=== PATIENT | female | born 1990 | race African-American/Black ===

== ENCOUNTER → 2016-12-03 | Outpatient (REF) | payer OTHER ==
[~2016-12-03] MED LIST: IBUP-1114 PO; OXYC1TAB23 PO; PRENTAB9 PO
== END ==
LOC: M LAB REF 12:39
PROVIDERS: ATTEND Advanced Practice Midwife
DX: Z11.3 Encounter for screening for infections with a predominantly sexual mode of transmission (principal)

== ENCOUNTER → 2016-12-05 | Outpatient (REF) | payer OTHER ==
[2016-12-05 19:01] LABS: FREE T4 0.79 NG/DL (0.76-1.46)
== END ==
LOC: M LABDRAW1 16:48
PROVIDERS: ATTEND Family Medicine
DX: R68.89 Other general symptoms and signs (principal); R63.5 Abnormal weight gain; Z86.19 Personal history of other infectious and parasitic diseases

== ENCOUNTER → 2025-01-09 | Outpatient (CLI) | payer MEDICAID, OTHER | LOC: M RAD 14:05 | PROVIDERS: ATTEND Student in an Organized Health Care Education/Training Program | DX: M25.559 Pain in unspecified hip (principal) ==

== ENCOUNTER → 2025-01-09 | Outpatient (CLI) | payer MEDICAID, OTHER ==
[2025-01-09 15:27] LABS: BASO # 0.1 10^3/uL (0.0-0.2); BASO % 1.3 % (0.0-1.0); EOS # 0.1 10^3/uL (0.0-0.5); EOS % 1.3 % (0.0-3.0); HEMATOCRIT 42.5 % (36.0-47.0); HEMOGLOBIN 13.3 g/dl (12.0-15.5); LYMPH # 2.7 10^3/uL (1.5-5.0); LYMPH % 55.7 % (24.0-44.0); MEAN CORPUSCULAR HEMOGLOBIN 26.5 pg (27.0-33.0); MEAN CORPUSCULAR HGB CONC 31.3 g/dl (32.0-36.5); MEAN CORPUSCULAR VOLUME 84.7 fl (80.0-96.0); MONO # 0.4 10^3/uL (0.0-0.8); MONO % 8.6 % (2.0-8.0); NEUTROPHILS # 1.6 10^3/uL (1.5-8.5); NEUTROPHILS % 32.9 % (36.0-66.0); PLATELET COUNT, AUTOMATED 283 10^3/uL (150-450); RED BLOOD COUNT 5.02 10^6/uL (4.00-5.40); WHITE BLOOD COUNT 4.8 10^3/uL (4.0-10.0)
[2025-01-09 15:31] LABS: BLOOD UREA NITROGEN 10 MG/DL (9-23); C REACTIVE PROTEIN QUANTITATIV < 0.50 MG/DL (<1.0); CALCIUM LEVEL 9.2 MG/DL (8.5-10.1); CARBON DIOXIDE LEVEL 30 MMOL/L (20-31); CHLORIDE LEVEL 108 MMOL/L (98-107); CHOLESTEROL LEVEL 145 MG/DL (<200); CHOLESTEROL RISK RATIO 3.33 (<5); CREATININE FOR GFR 0.67 MG/DL (0.55-1.30); GLOMERULAR FILTRATION RATE > 60.0 (>60); GLUCOSE, FASTING 62 MG/DL (60-100); HDL CHOLESTEROL 43.5 MG/DL (>40); LDL CHOLESTEROL 84.5 MG/DL (<100); NON-HDL-C 101.5 MG/DL; POTASSIUM SERUM 4.5 MMOL/L (3.5-5.1); SODIUM LEVEL 143 MMOL/L (136-145); TRIGLYCERIDES LEVEL 85 MG/DL (<150)
[2025-01-09 15:39] LABS: ERYTHROCYTE SEDIMENTATION RATE 10 mm/hr (0-20)
== END ==
LOC: M LAB 13:59
PROVIDERS: ATTEND Nurse Practitioner Family
DX: M25.551 Pain in right hip (principal)

== ENCOUNTER → 2025-01-11 | Outpatient (CLI) | payer MEDICAID | LOC: M SOG 07:52 | PROVIDERS: ATTEND Physician Assistant | DX: M79.642 Pain in left hand (principal); M79.641 Pain in right hand ==

== ENCOUNTER → 2025-02-06 | Outpatient (RCR) | payer MEDICAID | LOC: M PT 01-31 10:12 | PROVIDERS: ATTEND Physician Assistant | DX: M25.552 Pain in left hip (principal); M25.551 Pain in right hip ==

== ENCOUNTER → 2025-02-23 | Outpatient (REF) | payer MEDICAID | LOC: M LAB REF 17:12 | PROVIDERS: ATTEND Physician Assistant | DX: F32.A Depression, unspecified (principal); F90.9 Attention-deficit hyperactivity disorder, unspecified type; F43.12 Post-traumatic stress disorder, chronic ==

== ENCOUNTER → 2025-03-08 | Outpatient (RCR) | payer MEDICAID | LOC: M PT 02-16 14:36 | PROVIDERS: ATTEND Physician Assistant | DX: M25.551 Pain in right hip (principal); M25.552 Pain in left hip ==

== ENCOUNTER → 2025-03-09 | Outpatient (CLI) | payer OTHER | LOC: M RAD 06:31 | PROVIDERS: ATTEND Physician Assistant | DX: M24.851 Other specific joint derangements of right hip, not elsewhere classified (principal) ==

== ENCOUNTER → 2025-07-19 | Outpatient (CLI) | payer OTHER | LOC: M PLAIMG 10:36 | PROVIDERS: ATTEND Psychiatry & Neurology Neurology | DX: M48.061 Spinal stenosis, lumbar region without neurogenic claudication (principal); M54.17 Radiculopathy, lumbosacral region; M54.59 Other low back pain; R26.89 Other abnormalities of gait and mobility; R26.81 Unsteadiness on feet; R42 Dizziness and giddiness ==